=== PATIENT | female | born 1955 | race Caucasian/White ===

== ENCOUNTER → 2017-07-03 | Outpatient (CLI) | payer MEDICARE, OTHER ==
[2016-11-07 03:54] VITALS: BP 168/94
[~2017-07-03] MED LIST: ACET325T9 PO; AMLO2.5T PO; CYCL5TAB PO; FLUO10CA13 PO; GUAI120L35 PO; HYDR-2758 PO; MIRT15TA3 PO; NAPR220T70 PO; ONDA8TAB12 PO; OXYM5TAB22 PO; PRED50TA PO; QUET25TA5 PO; QUET50TA8 PO
--- NOTE | 2017-07-03 14:08 | RAD ---
Right lower extremity venous duplex study 07/03/2017 Clinical history: Right leg swelling.. Technique: Using a combination of real time ultrasound imaging and color-flow and pulse Doppler imaging techniques along with graded compression and augmentation, duplex evaluation of the deep venous system of the right lower extremity was performed. Multiple images were obtained. Findings: This study is limited to some degree due to the patient's large body habitus. There is no sonographic evidence of deep venous thrombosis involving the visualized deep venous structures of the right lower extremity. Enlarged lymph nodes are seen within the right inguinal region which measure 2.9 to 4.1 cm in size. Impression: There is no sonographic evidence of deep venous thrombosis involving the visualized deep venous structures of the right lower extremity.
== END | disposition home or self-care (01) ==
LOC: US 12:05
PROVIDERS: ATTEND Family Medicine
DX: M79.89 Other specified soft tissue disorders (principal); R60.0 Localized edema
CPT/HCPCS: 93971